=== PATIENT | female | born 1980 | race Caucasian/White ===

== ENCOUNTER 2018-01-30 07:47 | Day surgery (SDC) | payer MEDICAID ==
[2018-01-30] MEDS: CEFAZOLIN 1 GM/50 ML (PMX) 50 ML IVPB ×2 (09:36→10:00)
[2018-01-30] MEDS: LACTATED RINGER'S 1,000 ML IV* (10:30)
[2018-01-30] MEDS: LIDOCAINE 1%/EPI 30 ML INJ (10:45)
[2018-01-30] MEDS: FENTAnyl 50 MCG/ML VIAL (10:45)
[2018-01-30] MEDS: MIDAZOLAM 1 MG/ML 2 ML INJ (10:46)
[2018-01-30] MEDS: HEPARIN 1000 UNITS/ML 10 ML INJ (10:50)
[2018-01-30] MEDS: POLYMYXIN/BACITRACIN 1L IRRIG IRR (10:50)
[2018-01-30] MEDS: SOD CHLORIDE 0.9% 500 ML (10:55)
[2018-01-30] MEDS ORDERED: HYDROCODONE/APAP (5/325) TAB PO (11:30)
== END 2018-01-30 14:15 | disposition home or self-care (01) ==
LOC: SDS 07:47
DX: C50.912 Malignant neoplasm of unspecified site of left female breast (principal)
CPT/HCPCS: 36561; 76942; 93306

== ENCOUNTER 2018-05-08 06:27 | Observation (INO) | payer MEDICAID ==
[2018-05-08] MEDS ORDERED: SOD CHLORIDE 0.9% 1,000 ML IV (07:00)
[2018-05-08 07:52] LABS: ADD MAN DIFF? NO
[2018-05-08 08:01] LABS: WHITE BLOOD COUNT 5.3 10^3/ul (4.8-10.8)
[2018-05-08 08:01] LABS: BASOPHILS % 0.6 % (0.0-2.0); EOSINOPHILS # 0.1 10^3/ul (0.0-0.5); EOSINOPHILS % 1.9 % (0.0-7.0); HEMATOCRIT 38.8 % (37.0-47.0); LYMPHOCYTES # 1.3 10^3/ul (0.8-2.9); LYMPHOCYTES % 24.6 % (15.0-51.0); MEAN CORPUSCULAR HEMOGLOBIN 30.2 pg (29.0-33.0); MEAN CORPUSCULAR HGB CONC 33.5 g/dl (32.0-37.0); MEAN PLATELET VOLUME 9.5 fl (7.4-10.4); MONOCYTE # 0.4 10^3/ul (0.3-0.9); MONOCYTES % 6.6 % (0.0-11.0); NEUTROPHIL # 3.5 10^3/ul (1.6-7.5); NEUTROPHILS % 66.1 % (39.0-77.0); PLATELET COUNT 223 10^3/UL (140-415); RED BLOOD COUNT 4.31 10^6/ul (4.20-5.40)
[2018-05-08 08:21] LABS: ALANINE AMINOTRANSFERASE 23 IU/L (13-69); ALBUMIN 4.6 g/dl (3.3-4.9); ALBUMIN/GLOBULIN RATIO 1.48; ALKALINE PHOSPHATASE 107 IU/L (42-121); ANION GAP 14 (8-16); ASPARTATE AMINO TRANSFERASE 19 IU/L (15-46); BILIRUBIN,INDIRECT 0.4 mg/dl (0-1.1); BILIRUBIN,TOTAL 0.4 mg/dl (0.2-1.3); BLOOD UREA NITROGEN 14 mg/dl (7-20); CALCIUM 9.7 mg/dl (8.4-10.2); CARBON DIOXIDE 26 mmol/L (21-31); CHLORIDE 105 mmol/L (97-110); CREATININE 0.59 mg/dl (0.44-1.00); GLUCOSE 102 mg/dl (70-220); POTASSIUM 3.8 mmol/L (3.5-5.1); SODIUM 141 mmol/L (135-144); TOTAL PROTEIN 7.7 g/dl (6.1-8.1)
[2018-05-08 08:28] LABS: INR 0.92; PROTIME 12.4 Sec (11.9-14.9)
[2018-05-08 09:17] LABS: PARTIAL THROMBOPLASTIN TIME 41.5 Sec (25.0-35.0)
[2018-05-08] MEDS ORDERED: GLYCOPYRROLATE 0.4 MG INJ (09:35)
[2018-05-08] MEDS ORDERED: PROPOFOL 20 ML (09:35)
[2018-05-08] MEDS ORDERED: ROCURONIUM 50 MG INJ (09:35)
[2018-05-08] MEDS ORDERED: NEOSTIGMINE 3 MG/3 ML SYRINGE (09:35)
[2018-05-08] MEDS ORDERED: CEFAZOLIN 1 GM INJ (09:35)
[2018-05-08] MEDS ORDERED: DEXAMETHASONE 4 MG/ML 1 ML INJ (09:37)
[2018-05-08] MEDS ORDERED: MIDAZOLAM 1 MG/ML 2 ML INJ (09:37)
[2018-05-08] MEDS ORDERED: FENTAnyl 50 MCG/ML VIAL ×2 (09:37→11:00)
[2018-05-08] MEDS ORDERED: ONDANSETRON 4 MG INJ (09:37)
[2018-05-08] MEDS: CEFAZOLIN 2 GM/50 ML (PMX) 50 ML IVPB (09:40)
[2018-05-08] MEDS ORDERED: EPHEDrine SULFATE 50 MG/5 ML SYG IV (10:00)
[2018-05-08] MEDS ORDERED: MIDAZOLAM 1 MG/ML 2 ML INJ IV (10:00)
[2018-05-08] MEDS ORDERED: ONDANSETRON 4 MG INJ IV ×2 (10:00→11:30)
[2018-05-08] MEDS ORDERED: DIPHENHYDRAMINE 50 MG INJ IV (10:00)
[2018-05-08] MEDS ORDERED: ALBUTEROL 0.083% (NEB) 2.5 MG/3 ML AMP HHN (10:00)
[2018-05-08] MEDS ORDERED: FENTAnyl 50 MCG/ML VIAL IV ×2 (10:00)
[2018-05-08] MEDS ORDERED: TRIMETHOBENZAMIDE 100 MG/ML VIAL IM (10:00)
[2018-05-08] MEDS ORDERED: MEPERIDINE 25 MG INJ IV (10:00)
[2018-05-08] MEDS ORDERED: OXYCODONE/ACETAMINOPHEN (5/325) TAB PO ×2 (10:00)
[2018-05-08] MEDS ORDERED: HYDROmorphONE 1 MG/5 ML IV SYRINGE IV (10:00)
[2018-05-08] MEDS ORDERED: IPRATROPIUM (NEB) 0.5 MG/2.5 ML AMP HHN (10:00)
[2018-05-08] MEDS ORDERED: hydrALAzine 20 MG INJ IV (10:00)
[2018-05-08] MEDS ORDERED: LABETALOL HCL 20MG INJ IV (10:00)
[2018-05-08] MEDS ORDERED: EPHEDrine SULFATE 50 MG/5 ML SYG (10:31)
[2018-05-08] MEDS ORDERED: SUGAMMADEX SODIUM 200 MG/2 ML VIAL IV (10:44)
[2018-05-08] MEDS ORDERED: LIDOCAINE 2% (SDV) 5 ML INJ (10:45)
[2018-05-08] MEDS: HYDROmorphONE 1 MG/5 ML IV SYRINGE IV ×3 (11:30→12:26)
[2018-05-08] MEDS: FENTAnyl 50 MCG/ML VIAL IV (12:05)
[2018-05-08] MEDS: D5W-0.45 NACL + KCL 20 MEQ 1,000 ML IV ×3 (14:00→22:02)
[2018-05-08] MEDS: ACETAMINOPHEN 1000MG/100ML IV 100 ML IVPB (21:41)
[2018-05-08] MEDS: CEPASTAT LOZENGE MT (21:41)
[2018-05-09] MEDS: D5W-0.45 NACL + KCL 20 MEQ 1,000 ML IV (06:53)
[2018-05-09] MEDS: morphine 2 MG INJ IV ×2 (07:09→14:13)
[2018-05-09 08:43] LABS: ADD MAN DIFF? NO
[2018-05-09 08:57] LABS: BASOPHILS % 0.1 % (0.0-2.0); EOSINOPHILS % 0.3 % (0.0-7.0); HEMATOCRIT 37.8 % (37.0-47.0); HEMOGLOBIN 12.6 g/dl (12.0-16.0); LYMPHOCYTES # 0.7 10^3/ul (0.8-2.9); LYMPHOCYTES % 6.2 % (15.0-51.0); MEAN CORPUSCULAR HEMOGLOBIN 30.4 pg (29.0-33.0); MEAN CORPUSCULAR HGB CONC 33.3 g/dl (32.0-37.0); MEAN CORPUSCULAR VOLUME 91.3 fl (82.0-101.0); MEAN PLATELET VOLUME 9.8 fl (7.4-10.4); MONOCYTE # 0.7 10^3/ul (0.3-0.9); NEUTROPHILS % 87.1 % (39.0-77.0); PLATELET COUNT 233 10^3/UL (140-415); RED BLOOD COUNT 4.14 10^6/ul (4.20-5.40); RED CELL DISTRIBUTION WIDTH 12.8 % (11.5-14.5)
[2018-05-09 08:57] LABS: WHITE BLOOD COUNT 11.4 10^3/ul (4.8-10.8)
[2018-05-09 09:43] LABS: ANION GAP 13 (8-16); BLOOD UREA NITROGEN 5 mg/dl (7-20); CALCIUM 9.3 mg/dl (8.4-10.2); CARBON DIOXIDE 23 mmol/L (21-31); CHLORIDE 107 mmol/L (97-110); CREATININE 0.48 mg/dl (0.44-1.00); GLUCOSE 100 mg/dl (70-220); POTASSIUM 3.6 mmol/L (3.5-5.1); SODIUM 139 mmol/L (135-144)
[2018-05-09] MEDS ORDERED: morphine LIQ (10 MG/5 ML) CUP PO (15:00)
== END 2018-05-09 20:10 | disposition home or self-care (01) ==
LOC: SDS 06:27 → 2NE 11:18
DX: C50.512 Malignant neoplasm of lower-outer quadrant of left female breast (principal); G89.18 Other acute postprocedural pain; Z17.0 Estrogen receptor positive status [ER+]; Z92.21 Personal history of antineoplastic chemotherapy
CPT/HCPCS: 19307; 71045; 80048; 80053; 85025; 85610; 85730; 88307; 93005

== ENCOUNTER 2018-09-22 07:28 | Day surgery (SDC) | payer MEDICAID ==
[~2018-09-22 07:28] MED LIST: DESFLURANE 15 MIN
[2018-09-22] MEDS ORDERED: LIDOCAINE 2% (SDV) 5 ML INJ (08:46)
[2018-09-22] MEDS ORDERED: PROPOFOL 20 ML (08:46)
[2018-09-22] MEDS ORDERED: CEFAZOLIN 1 GM INJ (08:46)
[2018-09-22] MEDS ORDERED: ONDANSETRON 4 MG INJ (08:47)
[2018-09-22] MEDS ORDERED: MEPERIDINE 100 MG INJ (08:47)
[2018-09-22] MEDS ORDERED: METOCLOPRAMIDE 10 MG INJ (08:47)
[2018-09-22] MEDS ORDERED: MEPERIDINE 25 MG INJ IV (09:00)
[2018-09-22] MEDS ORDERED: SOD CHLORIDE 0.9% 1,000 ML IV (09:00)
[2018-09-22] MEDS ORDERED: CEFAZOLIN 2 GM/50 ML (PMX) 50 ML IVPB (09:00)
[2018-09-22] MEDS ORDERED: OXYCODONE/ACETAMINOPHEN (5/325) TAB PO ×2 (09:00)
[2018-09-22] MEDS ORDERED: ONDANSETRON 4 MG INJ IV (09:00)
[2018-09-22] MEDS ORDERED: DIPHENHYDRAMINE 50 MG INJ IV (09:00)
[2018-09-22] MEDS ORDERED: METOCLOPRAMIDE 10 MG INJ IV (09:00)
[2018-09-22] MEDS ORDERED: FENTAnyl 50 MCG/ML VIAL IV ×3 (09:00)
[2018-09-22] MEDS ORDERED: MIDAZOLAM 1 MG/ML 2 ML INJ IV (09:00)
[2018-09-22] MEDS: BUPIVACAINE 0.5%/EPI (SDV) 30 ML INJ (10:30)
== END 2018-09-22 13:22 | disposition home or self-care (01) ==
LOC: SDS 07:28
DX: C50.812 Malignant neoplasm of overlapping sites of left female breast (principal)
CPT/HCPCS: 14000; 88307